=== PATIENT | female | born 1980 | race Caucasian/White ===

== ENCOUNTER → 2024-05-06 | Outpatient (REF) | LOC: M EMP 09:36 | PROVIDERS: ATTEND Family Medicine | DX: Z11.52 Encounter for screening for COVID-19 (principal) ==

== ENCOUNTER → 2024-05-27 | Outpatient (REF) | LOC: M EMP 08:18 | PROVIDERS: ATTEND Family Medicine | DX: Z20.822 Contact with and (suspected) exposure to COVID-19 (principal) ==

== ENCOUNTER 2024-05-30 07:28 | Emergency (ER) | payer SELFPAY ==
[~2024-05-30] VITALS: Ht 172.7 cm; Wt 115.0 kg
[2024-05-30 08:01] LABS: KETONE, URINE AUTO RFX NEGATIVE (NEGATIVE); LEUKOCYTE ESTERASE UR AUTO RFX NEGATIVE (NEGATIVE); MUCUS, URINE RFX SMALL (NEGATIVE); NITRITE, URINE AUTO RFX NEGATIVE (NEGATIVE); RBC, URINE AUTO RFX 0 /HPF (0-3); SQUAM EPITHELIAL CELL UR AURFX 1 /HPF (0-6); WBC, URINE AUTO RFX 0 /HPF (0-3)
[2024-05-30] MEDS: KETOROLAC 30 MG/ML 1ML VIAL IM ONE (08:37)
[2024-05-30] MEDS: methocarbamoL 750 MG TAB PO ONE (10:06)
[2024-05-30] MEDS ORDERED: METH-1165 PO (10:48)
[2024-05-30 11:15] VITALS: BP 116/78; TEMP 98; O2SAT 98
== END 2024-05-30 11:17 | disposition home or self-care (01) ==
LOC: M ED 07:28
DX: M54.50 Low back pain, unspecified (principal); Z79.899 Other long term (current) drug therapy
CPT/HCPCS: 72110; 81001; 96372; 99283; J1885

== ENCOUNTER → 2024-12-26 | Outpatient (REF) ==
[~2024-12-26] MED LIST: METH-1165 PO
== END ==
LOC: M EMP 12:49
PROVIDERS: ATTEND Family Medicine
DX: Z01.89 Encounter for other specified special examinations (principal)